=== PATIENT | female | born 1980 | race African-American/Black ===

== ENCOUNTER 2018-05-17 15:16 | Emergency (ER) | payer BC ==
--- NOTE | 2018-05-17 15:29 | ED Physician Documentation ---
PD HPI BACK INJURY - Stated complaint Stated Complaint: ABD/BACK PX - History obtained from History obtained from: Patient - History of Present Illness Location: Left, Other (lower thoracic) Type of injury: Twist (Onset of pain with a hard cough a week ago and it has persisted in the left lower thoracic area radiating around to the left lower ribs. She denies abdominal pain. There is no change with eating. She hurts more with deep breathing and movement. She had a chest x-ray by her primary care several days ago that was reportedly normal. She was told to take ibuprofen and this is not helping well enough.) Where injury occurred: Home Timing - onset: How many weeks ago (1) Timing - duration: Weeks (1) Timing - details: Abrupt onset, Still present Quality: Pain, Sharp Worsened by: Moving, Other (breathing). No: Palpating Associated symptoms: No: Fever, Weakness, Numbness Similar symptoms before: Has not had sx before Recently seen: Clinic (had chest xray which is reportedly normal) Review of Systems Constitutional: denies: Fever, Chills, Myalgias Nose: denies: Rhinorrhea / runny nose, Congestion Throat: denies: Sore throat Cardiac: reports: Chest pain / pressure (left lateral and posterior lower ribs/chest, sharp.). denies: Palpitations Respiratory: reports: Cough GI: denies: Abdominal Pain, Nausea, Vomiting, Diarrhea Skin: denies: Rash, Lesions Neurologic: denies: Focal weakness, Numbness PD PAST MEDICAL HISTORY - Past Medical History Cardiovascular: None Respiratory: None Neuro: None Endocrine/Autoimmune: None - Present Medications Home Medications: Ambulatory Orders Medication Instructions Recorded Confirmed Dexamethasone [Decadron] 4 mg PO DAILY #5 tablet 05/17/18 Hydrocodone/Acetaminophen [Roscoe 1 each PO Q6H PRN #20 tablet 05/17/18 5-325 Tablet] Methocarbamol [Robaxin] 500 mg PO Q6H PRN #30 tablet 05/17/18 - Allergies Allergies/Adverse Reactions: Allergies Allergy/AdvReac Type Severity Reaction Status Date / Time No Known Drug Allergies Allergy Verified 05/17/18 15:23 PD ED PE NORMAL - Vitals Vital signs reviewed: Yes - General General: Alert and oriented X 3, Well developed/nourished, Other (appears uncomfortable with deep breathing and moving. ) - HEENT HEENT: Pharynx benign - Neck Neck: Supple, no meningeal sign, No adenopathy - Cardiac Cardiac: RRR, No murmur - Respiratory Respiratory: Clear bilaterally, Other (tender lateral and anterolateral chest at lower costal margin and cartilage. No rash nor sores. Abd not tender. ) - Abdomen Abdomen: Soft, Non tender - Derm Derm: Normal color, Warm and dry, No rash - Extremities Extremities: Normal ROM s pain, No edema, No calf tenderness / cord - Neuro Neuro: Alert and oriented X 3, No motor deficit, Normal speech Results - Vitals Vitals: Vital Signs - 24 hr 05/17/18 05/17/18 15:20 16:42 Temperature 36.6 C Heart Rate 76 74 Respiratory 19 18 Rate Blood Pressure 171/108 H 168/99 H O2 Saturation 96 99 Oxygen O2 Source Room air PD MEDICAL DECISION MAKING - ED course Complexity details: considered differential, d/w patient Departure - Departure Disposition: 01 Home, Self Care Clinical Impression: Acute thoracic myofascial strain Qualifiers: Encounter type: initial encounter Qualified Code(s): S29.019A - Strain of muscle and tendon of unspecified wall of thorax, initial encounter Condition: Stable Record reviewed to determine appropriate education?: Yes Instructions: ED Sprain Thoracic Spine Prescriptions: Dexamethasone [Decadron] 4 mg PO DAILY #5 tablet Hydrocodone/Acetaminophen [Roscoe 5-325 Tablet] 1 each PO Q6H PRN #20 tablet PRN Reason: Pain Methocarbamol [Robaxin] 500 mg PO Q6H PRN #30 tablet PRN Reason: Spasms Comments: Heat and gentle stretching for the area that is hurting. You could try massage or chiropractic as well. Continue some ibuprofen 2-3 times a day. Add Decadron steroid for inflammation as well. Robaxin muscle relaxant for spasms and stiffness. Add Tylenol or hydrocodone as needed for pain. Recheck if not improving over the next several days to week. Discharge Date/Time: 05/17/18 16:41
[2018-05-17] MEDS ORDERED: ACETAMINOPHEN 325 MG TABLET PO STA (16:16)
[2018-05-17] MEDS ORDERED: DEXAMETHASONE 10 MG/ML VIAL PO STA (16:16)
[2018-05-17] MEDS ORDERED: CHERRY SYRUP 10 ML UDC PO ONE (16:16)
[2018-05-17] MEDS ORDERED: METHOCARBAMOL 500 MG TABLET PO STA (16:16)
[2018-05-17 16:42] VITALS: BP 168/99
== END 2018-05-17 16:41 | disposition home or self-care (01) ==
LOC: ED 15:16
DX: S29.019A Strain of muscle and tendon of unspecified wall of thorax, initial encounter (principal); X50.1XXA Overexertion from prolonged static or awkward postures, initial encounter
CPT/HCPCS: 99283; A9270